=== PATIENT | female | born 1980 | race Caucasian/White ===

== ENCOUNTER 2020-07-02 14:16 | Outpatient (CLI) | payer OTHER, SELFPAY ==
--- NOTE | ~2020-07-02 | MMUS_ITS ---
EXAMINATION: MM diagnostic gray BI w arturo, US breast LT limited HISTORY: Palpable lump in the upper outer quadrant of the left breast TECHNIQUE: Craniocaudal, mediolateral, and mediolateral oblique 3-D tomosynthesis images of the hipolito ts were performed and synthetic 2-D images were generated. CAD analysis was submitted and interpreted . High resolution limited left breast ultrasound was performed. COMPARISON: No prior mammogram is currently available for comparison. BREAST PARENCHYMAL COMPOSITION: The breasts are heterogeneously dense, which may obscure small masses . FINDINGS: MAMMOGRAPHIC FINDINGS: There are multiple small, obscured, low density bilateral breast masses. No specific mammographic cor relate is identified for the reported palpable abnormality of the left breast. There is no suspicious calcification or architectural distortion. ULTRASOUND: There is an 8 mm cyst of the left breast at the 12:00 location 4 cm from the nipple corresponding to the palpable abnormality of concern. IMPRESSION: 1. Left breast cyst corresponding to the palpable abnormality of concern. No mammographic or sonograp hic evidence of malignancy. 2. Recommend routine screening mammography in one year. BI-RADS Category 2: Benign finding(s). Reviewed, dictated and finalized at location A. ADVISOR IMPRESSION: 1. Left breast cyst corresponding to the palpable abnormality of concern. No ma mmographic or sonographic evidence of malignancy. 2. Recommend routine screening mammography in one year. BI-RADS Category 2: Benign finding(s).
== END 2020-07-02 14:17 | disposition home or self-care (01) ==
PROVIDERS: PCP Family Medicine; Visit Provider Student in an Organized Health Care Education/Training Program
DX: N63.0 Unspecified lump in unspecified breast (principal); N60.02 Solitary cyst of left breast
CPT/HCPCS: 76642; 77062; 77066; G0279

== ENCOUNTER → 2021-02-12 13:41 | Outpatient (CLI) | payer OTHER, SELFPAY ==
--- NOTE | ~2021-02-12 | MM_ITS ---
EXAMINATION: MM screening gray BI w arturo HISTORY: Screening mammogram TECHNIQUE: Craniocaudal and mediolateral oblique 3-D tomosynthesis images were obtained and synthetic 2-D images were generated. CAD analysis was submitted and interpreted. COMPARISON: 07/02/2017 bilateral diagnostic mammogram and limited left breast BREAST PARENCHYMAL COMPOSITION: The breasts are heterogeneously dense, which may obscure small masses . FINDINGS: Bilateral low-density circumscribed masses are noted. Bilateral diagnostic mammography and breast ultrasound examination are recommended. IMPRESSION: 1. Bilateral breast masses 2. Bilateral diagnostic mammography and breast ultrasound examination are recommended BI-RADS Category 0: Incomplete: Needs additional imaging evaluation. Reviewed, dictated and finalized at location A. IMPRESSION: 1. Bilateral breast masses 2. Bilateral diagnostic mammography and breast ultrasound examination are recom mended BI-RADS Category 0: Incomplete: Needs additional imaging evaluation.
== END ==
PROVIDERS: Visit Provider Obstetrics & Gynecology
DX: Z12.31 Encounter for screening mammogram for malignant neoplasm of breast (principal); R92.8 Other abnormal and inconclusive findings on diagnostic imaging of breast
CPT/HCPCS: 77063; 77067

== ENCOUNTER → 2021-03-17 09:49 | Outpatient (CLI) | payer OTHER, SELFPAY ==
--- NOTE | ~2021-03-17 | MMUS_ITS ---
EXAMINATION: MM diagnostic gray BI w arturo, US breast BI complete HISTORY: Follow-up bilateral breast masses TECHNIQUE: Additional 3-D tomosynthesis images of the breasts were performed and synthetic 2-D images were generated. CAD analysis was submitted and interpreted. High resolution bilateral complete breas t ultrasound was performed. COMPARISON: Comparison to multiple prior studies sequentially, with oldest reviewed study dated 06/16. BREAST PARENCHYMAL COMPOSITION: The breasts are heterogenously dense, which may obscure small masses. FINDINGS: MAMMOGRAPHIC FINDINGS: There are scattered nodular densities in both breasts which are obscured by dense fibroglandular tiss ue. There are no suspicious calcifications or architectural distortion. ULTRASOUND: Right breast ultrasound: There are multiple simple and complicated cysts of the right breast. At 12:0 0, 3 cm from the nipple there is a 7 mm intramammary lymph node. At 11:00, 7 cm from the nipple there is an oval hypoechoic mass measuring 5 mm. At 11:00, 8 cm from the nipple there is an 8 mm oval hypo echoic mass with posterior acoustic enhancement. No internal vascularity. There are heterogeneous int ernal echoes. Left breast ultrasound: Multiple simple and complicated cysts of the left breast. No suspicious cecelia s in the left breast to suggest malignancy. IMPRESSION: 1. Probable benign masses of the right breast by ultrasound. 2. Recommend 6 month follow-up right breast ultrasound BI-RADS category 3, probably benign findings. Reviewed, dictated and finalized at location A. IMPRESSION: 1. Probable benign masses of the right breast by ultrasound. 2. Recommend 6 month follow-up right breast ultrasound BI-RADS category 3, probably benign findings.
== END ==
PROVIDERS: Visit Provider Obstetrics & Gynecology
DX: N63.15 Unspecified lump in the right breast, overlapping quadrants (principal); N63.11 Unspecified lump in the right breast, upper outer quadrant
CPT/HCPCS: 76641; 77062; 77066; G0279

== ENCOUNTER → 2021-09-30 08:40 | Outpatient (CLI) | payer OTHER, SELFPAY ==
--- NOTE | ~2021-09-30 | US_ITS ---
EXAMINATION: US breast RT limited HISTORY: Six-month follow-up for probably benign right breast masses TECHNIQUE: Limited right breast ultrasound is performed. COMPARISON: 03/17/2021 FINDINGS: There is a stable 7 mm x 6 mm oval, circumscribed, parallel, hypoechoic mass with no lead assembler ior features or internal vascularity at the 11:00 location 8 cm from the nipple. A 9 mm x 5 mm mass w ith similar sonographic features, also at the 11:00 location 8 cm from the nipple demonstrates slight increase in size. There is a stable 5 mm x 4 mm mass with similar sonographic features at the 11:00 location 7 cm from the nipple. IMPRESSION: Probably benign right breast masses. Recommend follow-up right breast ultrasound in six months. BI-RADS category 3, probably benign findings. Reviewed, dictated and finalized at location A. IMPRESSION: Probably benign right breast masses. Recommend follow-up right breast ultrasoun d in six months. BI-RADS category 3, probably benign findings.
== END ==
PROVIDERS: Visit Provider Obstetrics & Gynecology
DX: R92.8 Other abnormal and inconclusive findings on diagnostic imaging of breast (principal)
CPT/HCPCS: 76642

== ENCOUNTER → 2022-03-09 07:55 | Outpatient (CLI) | payer OTHER, SELFPAY ==
--- NOTE | ~2022-03-09 | MMUS_ITS ---
EXAMINATION: MM diagnostic gray BI w arturo, US breast RT limited HISTORY: Follow-up right breast masses TECHNIQUE: Additional 3-D tomosynthesis images of the breasts were performed and synthetic 2-D images were generated. CAD analysis was submitted and interpreted. High resolution Limited right breast ult rasound was performed. COMPARISON: Comparison to multiple prior studies sequentially, with oldest reviewed study dated 06/16. BREAST PARENCHYMAL COMPOSITION: The breasts are extremely dense, which lowers the sensitivity of mamm ography FINDINGS: MAMMOGRAPHIC FINDINGS: There are no suspicious masses, calcifications or architectural distortion in either breast to sugges t malignancy. ULTRASOUND: Limited right breast ultrasound: At 11:00, 8 cm from the nipple there is a stable oval circumscribed hypoechoic mass with parallel orientation, no significant posterior features measuring 8 x 8 x 5 mm, stable compared with prior studies. At 11:00, 8 cm from the nipple there is an oval circumscribed hyp oechoic mass with parallel orientation measuring 5 x 3 x 5 mm, stable compared with 09/30/2021. At 11: 00, 7 cm from the nipple there is an 8 mm cyst. IMPRESSION: 1. Stable right breast masses, likely benign. 2. Recommend 6 month follow-up Limited right breast ultrasound BI-RADS category 3, probably benign findings. Reviewed, dictated and finalized at location A. IMPRESSION: 1. Stable right breast masses, likely benign. 2. Recommend 6 month follow-up Limited right breast ultrasound BI-RADS category 3, probably benign findings.
== END ==
PROVIDERS: PCP Obstetrics & Gynecology; Visit Provider Obstetrics & Gynecology
DX: R92.8 Other abnormal and inconclusive findings on diagnostic imaging of breast (principal)
CPT/HCPCS: 76642; 77062; 77066; G0279

== ENCOUNTER → 2022-10-06 08:29 | Outpatient (CLI) | payer OTHER, SELFPAY ==
--- NOTE | ~2022-10-06 | US_ITS ---
US breast RT limited 10/06/2022 09:06 Indication: Follow-up right breast masses Procedure: High-resolution Limited ultrasound of the right breast Comparison: Comparison to multiple prior studies sequentially, with oldest reviewed study dated 07/2020. Findings: There are stable oval circumscribed hypoechoic masses of the right breast located at 11:00, 8 cm from the nipple. The first mass measures 7 x 8 x 5 mm, unchanged. There is parallel orientation , circumscribed margins, no significant posterior features and no internal vascularity. The second ma ss measures 8 x 4 x 7 mm with similar characteristics, unchanged. Impression: 1: Stable benign-appearing right breast masses at 11:00, 7 cm from the nipple. BI-RADS CATEGORY 3-PROBABLY BENIGN FINDING RECOMMENDATION: Six-month follow-up diagnostic bilateral mammogram and right breast ultrasound recomm ended. Reviewed, dictated and finalized at location A. Impression: 1: Stable benign-appearing right breast masses at 11:00, 7 cm from the nipple. BI-RADS CATEGORY 3-PROBABLY BENIGN FINDING RECOMMENDATION: Six-month follow-up diagnostic bilateral mammogram and right br east ultrasound recommended.
== END ==
PROVIDERS: PCP Physician Assistant; Visit Provider Obstetrics & Gynecology
DX: N63.11 Unspecified lump in the right breast, upper outer quadrant (principal)
CPT/HCPCS: 76642

== ENCOUNTER → 2023-03-23 07:42 | Outpatient (CLI) | payer OTHER, SELFPAY ==
--- NOTE | ~2023-03-23 | MMUS_ITS ---
EXAMINATION: MM diagnostic gray BI w arturo, US breast RT limited HISTORY: Six-month follow-up of right likely benign stable breast masses. Screening. TECHNIQUE: ML, MLO and CC 3-D tomosynthesis images of both breasts were performed and synthetic 2-D i mages were generated. CAD analysis was submitted and interpreted. High resolution targeted 11:00 righ t breast ultrasound was performed. COMPARISON: 10/06/2022 Limited right breast ultrasound 03/05/2022 diagnostic bilateral mammogram and limited right breast ultrasound 09/30/2021 Limited right breast ultrasound 03/17/2021 bilateral diagnostic mammography and bilateral complete breast ultrasound BREAST PARENCHYMAL COMPOSITION: The breasts are heterogeneously dense, which may obscure small masses . FINDINGS: MAMMOGRAPHIC FINDINGS: No suspicious mass or architectural distortion, malignant calcification, skin thickening or retractio n or significant new or developing density is detected. ULTRASOUND: No suspicious mass or shadowing is detected. The following 3 lesions appear similar, with circumscribed margins, no internal vascularity or posterior shadowing, suggesting benign process. 2 of these have diminished in size since 10/06/2022, further supporting benign diagnosis. 11:00 7 cm from nipple: 5.2 x 5.4 x 4.1 mm circumscribed hypoechoic lesion without internal vasculari ty or posterior shadowing 11:00 8 cm from nipple: 6.1 x 7.5 x 7.1 mm circumscribed hypoechoic lesion with without internal vasc ularity or posterior shadowing 11:00 8 cm from nipple: Parallel circumscribed 4.7 x 9.3 x 7.4 mm hypoechoic lesion without internal vascularity or posterior shadowing. IMPRESSION: 1. Benign findings; no mammographic or sonographic evidence of malignancy 2. Routine annual mammographic screening is recommended BI-RADS Category 2: Benign finding(s). Reviewed, dictated and finalized at location A. IMPRESSION: 1. Benign findings; no mammographic or sonographic evidence of malignancy 2. Routine annual mammographic screening is recommended BI-RADS Category 2: Benign finding(s).
== END ==
PROVIDERS: PCP Obstetrics & Gynecology; Visit Provider Obstetrics & Gynecology
DX: R92.8 Other abnormal and inconclusive findings on diagnostic imaging of breast (principal)
CPT/HCPCS: 76642; 77062; 77066; G0279

== ENCOUNTER 2023-12-12 09:13 | Outpatient (CLI) | payer OTHER, SELFPAY ==
--- NOTE | ~2023-12-12 | US_ITS ---
EXAMINATION: US pelvic complete w TV DATE: 12/12/2023 10:00 INDICATION: Left lower quadrant pain. History of fibroids. Comparison:Pelvic pain TECHNIQUE: Multiple transabdominal and endovaginal sonographic images of the pelvis performed. FINDINGS: The uterus measures 6.7 x 3.6 x 4.8 cm. There is a hyperechoic focus in the endometrium herb suring 6 x 4 x 3 mm, likely calcification. The endometrial complex measures 3 mm. The right ovary measures 3.9 x 2.1 x 2.5 cm and the left ovary measures 2.9 x 2.2 x 2 cm. There are small follicles in each ovary. Normal doppler signal in both ovaries. There is free fluid in the pelvis. There are no abnormal masses seen on either side. IMPRESSION: 1. Endometrial echogenic focus measuring 6 mm, possibly calcification. Reviewed, dictated and finalized at location B.
== END 2023-12-12 09:14 ==
LOC: GOSHIMG 09:14
PROVIDERS: PCP Obstetrics & Gynecology; Visit Provider Physician Assistant
DX: D25.9 Leiomyoma of uterus, unspecified (principal)
CPT/HCPCS: 76830; 76856

== ENCOUNTER 2024-01-22 11:33 | Emergency (ER) | payer OTHER, SELFPAY ==
--- NOTE | ~2024-01-22 | XR_ITS ---
Right foot Technique: AP, oblique, and lateral views were obtained. Clinical History: Injury Findings: There is an acute fracture of the distal fibula, obliquely oriented. No other fracture or d islocation seen in the foot itself.. Joint spaces are preserved without erosive or degenerative bernardo e. Soft tissues are unremarkable. Impression: No fracture or dislocation in the foot itself. Acute oblique fracture the distal fibula. Please refer to separately reported ankle radiographic seri es for further details. Reviewed, dictated and finalized at location M. Impression: No fracture or dislocation in the foot itself. Acute oblique fracture the distal fibula. Please refer to separately reported a nkle radiographic series for further details.
--- NOTE | ~2024-01-22 | XR_ITS ---
Right ankle Technique: AP, oblique, and lateral views were obtained. Clinical History: Injury Findings: There is an acute, oblique fracture of the distal fibula, at and just proximal to the level ankle mortise, mildly displaced. No other fracture or dislocation seen.. Ankle mortise and other vis ualized joint spaces are preserved. Soft tissue swelling about the ankle noted. Impression: Acute fracture the distal fibula, as detailed above. Reviewed, dictated and finalized at location M. Impression: Acute fracture the distal fibula, as detailed above.
--- NOTE | 2024-01-22 11:39 | ED.LOWEXIN ---
HPI - Extremity Injury (Lower) General Chief Complaint: Extremity Injury, Lower <Candi Yen APRN - Last Filed: 01/23/24 11:16> Stated Complaint: Right Foot Injury <Candi Yen APRN - Last Filed: 01/23/24 11:16> Time Seen by Provider: 01/22/24 11:42 <Candi Yen APRN - Last Filed: 01/23/24 11:16> Source: patient, RN notes reviewed and old records reviewed <Candi Yen APRN - Last Filed: 01/23/24 11:16> Mode of arrival: ambulatory <Candi Yen APRN - Last Filed: 01/23/24 11:16> Limitations: no limitations <Candi Yen APRN - Last Filed: 01/23/24 11:16> History of Present Illness HPI Narrative: 44-year-old female presents to the [facility] with complaints of right lateral foot pain. Patient states that she ?jammed? her foot on Monday on a water slide. Has been icing it and elevating it. Swelling noted. Positive pedal pulse. Sensation intact. Bruising noted to the lateral malleolus as well as calcaneal area. Tender to the base of the 5th metatarsal, lateral malleolus. <Candi Yen APRN - Last Filed: 01/23/24 11:16> Onset (ago): day(s) (3) <Candi Yen APRN - Last Filed: 01/23/24 11:16> Injury: Right: ankle and foot <Candi Yen APRN - Last Filed: 01/23/24 11:16> Related Data Home Medications: Home Medications Medication Instructions Recorded Confirmed bupropion HCl 300 mg 24 hr tablet, mg PO 01/22/24 extended release <Candi Yen APRN - Last Filed: 01/23/24 11:16> Allergies/Adverse Reactions: Allergies Allergy/AdvReac Type Severity Reaction Status Date / Time No Known Allergies Allergy Unknown Verified 05/09/10 11:41 <Candi Yen APRN - Last Filed: 01/23/24 11:16> Review of Systems Review of Systems: All systems reviewed & are unremarkable except as noted in HPI and below <Candi Yen APRN - Last Filed: 01/23/24 11:16> Constitutional: Constitutional: Reports no additional constitutional complaints <Candi Yen APRN - Last Filed: 01/23/24 11:16> Eyes: Eyes: Reports no additional eye complaints <Candi Yen [employer] DEVELOPER - Last Filed: 01/23/24 11:16> ENT: Reports system reviewed and no additional complaints, except as documented <Candi Yen, [employer] DEVELOPER - Last Filed: 01/23/24 11:16> Cardiovascular: Cardiovascular: Reports no additional cardiovascular complaints, Denies chest pain and Denies dyspnea <Candi Yen [employer] DEVELOPER - Last Filed: 01/23/24 11:16> Respiratory: Respiratory: Reports no additional respiratory complaints, Denies chest congestion, Denies cough and Denies dyspnea <Candi Yen APRN - Last Filed: 01/23/24 11:16> Gastrointestinal: Gastrointestinal: Reports no additional gastrointestinal complaints, Denies abdominal pain, Denies nausea and Denies vomiting <Candi Yen, [employer] DEVELOPER - Last Filed: 01/23/24 11:16> Musculoskeletal: Musculoskeletal: Reports as per HPI, Reports arthralgias and Reports joint swelling <Candi Yen [employer] DEVELOPER - Last Filed: 01/23/24 11:16> Integumentary/Breasts: Skin/Breast: Reports system reviewed and no additional complaints, except as docu <Candi Yen [employer] DEVELOPER - Last Filed: 01/23/24 11:16> Neurologic: Reports system reviewed and no additional complaints, except as documented <Candi Yen, [employer] DEVELOPER - Last Filed: 01/23/24 11:16> Psychiatric: Psychiatric: Reports no additional psychiatric complaints <Candi Yen APRN - Last Filed: 01/23/24 11:16> Allergic/Immunologic: Allergic/Immunologic: Reports no additional allergic/immunologic complaints <Candi Yen APRN - Last Filed: 01/23/24 11:16> [facility] Family History Family History: Family History Mother Hypertension Family history of cardiovascular disease Family history of cardiac disorder <Candi Yen, NARAYAN - Last Filed: 01/23/24 11:16> Social History Social History: Social History (Reviewed 01/22/24 @ 11:50 by Josué
[2024-01-22 11:44] VITALS: BP 128/86; PULSE 78; RESP 16; TEMP 36.6; O2SAT 98
== END 2024-01-22 14:00 | disposition home or self-care (01) ==
PROVIDERS: Emergency Provider Nurse Practitioner Family; PCP Physician Assistant
DX: S82.61XA Displaced fracture of lateral malleolus of right fibula, initial encounter for closed fracture (principal); W22.09XA Striking against other stationary object, initial encounter
CPT/HCPCS: 29515; 73610; 73630; 99214; G0463

== ENCOUNTER 2024-03-28 09:54 | Outpatient (CLI) | payer OTHER, SELFPAY ==
--- NOTE | ~2024-03-28 | MM_ITS ---
EXAMINATION: MM screening gray BI w arturo HISTORY: Screening mammogram TECHNIQUE: Craniocaudal and mediolateral oblique 3-D tomosynthesis images were obtained and synthetic 2-D images were generated. CAD analysis was submitted and interpreted. COMPARISON: 03/23/2023, 03/09/2022, 02/12/2021, 07/02/2020 BREAST PARENCHYMAL COMPOSITION:Dense: The breasts are heterogeneously dense, which may obscure small masses. FINDINGS: No suspicious mass, calcification, or architectural distortion are identified in either rupinder ast to suggest malignancy. There has been no suspicious interval change. IMPRESSION: No mammographic evidence of malignancy. Recommend routine screening mammography in one year. BI-RADS Category 1: Negative Reviewed, dictated and finalized at location .
== END 2024-03-28 09:55 | disposition home or self-care (01) ==
LOC: MICIMG 09:56
PROVIDERS: PCP Obstetrics & Gynecology; Visit Provider Obstetrics & Gynecology
DX: Z12.31 Encounter for screening mammogram for malignant neoplasm of breast (principal)
CPT/HCPCS: 77063; 77067

== ENCOUNTER 2024-12-19 01:36 | Day surgery (SDC) | payer OTHER, SELFPAY ==
[2024-12-10 13:27] VITALS: BMI 23.4
--- OUTSIDE RECORDS SUMMARY | 2024-12-19 01:40 | XMS_ITS | Data Portability ---
Author Organization [facility] PATRICIABreanne Address [address] [facility] [place] [address] Care Team Providers Care Fire Sprinkler Service Technician Name Role Phone ASAFBECK THOMAS Primary Care Provider Unavailab le Assessment No assessment recorded. Plan of Treatment Reminders Order Date Submit Date Provider Last Modified By Organization Details Last Modified Time Details Appointments None recorded. Lab TSH + free T4, serum 2024 025 [email or web address] [facility], [address] [place] [address], [address], 5 15:01:57 estradiol, serum 2024 025 [email or web address] [facility], [address] [place] [address], [address], 5 15:01:57 progestero ne, serum 2024 025 [email or web address] [facility], [address] [place] [address], [address], 5 15:01:57 lh + FSH, serum 2024 025 [email or web address] [facility], [address] [place] [address], [address], 5 15:01:57 testostero ne, free + total, serum 2024 025 [email or web address] [facility], [address], [place], [address], 5 15:01:57 lipid panel, serum 2024 025 [facility], [address], [place], [address], 5 15:01:57 CBC w/ auto diff 2024 025 [email or web address], [address], [place], [address], 5 15:01:57 CMP, serum or plasma 2024 025 [email or web address], [address], [place], [address], 5 15:01:58 vitamin B12 + folate, serum or blood 2024 025 [facility], [address], [place], [address], 5 15:01:58 HbA1c (hemoglobi n A1c), blood 2024 025 [facility], [address], [place], [address], 5 15:01:57 TSH + free T4, serum 2023 024 MOO [facility], [address] [place] [address], [facility], [place], [address], 4 09:53:49 insulin, serum 2023 024 [email or web address] [facility], [address] [facility], [facility], [place], [address], 4 11:46:47 estradiol, serum 2023 024 [email or web address] [facility], [address] [facility], [facility], [place], [address], 4 11:47:32 progestero ne, serum 2023 024 [email or web address] [facility], [address] [place] [address] 2, [place], [address], 4 11:47:01 lh + FSH, serum 2023 024 [facility], [address] [place] [address] 2, [place], [address], 4 11:47:16 testostero ne, total, serum 2023 024 [facility], [address] [place] [address] 2, [place], [address], 4 11:47:43 Referral None recorded. Procedures colonoscop y screening (PROC) [address] [facility], [address], [address], [place], [address], 5 15:03:53 Surgeries None recorded. Imaging US, pelvis, transabdom inal + transvagin al 2023 024 [facility], [address] [place] [address], [address], [place], [address], 4 15:31:50 Medication Orders triamcinol one acetonide 0.1 % topical cream 2024 025 [facility], [address] [facility], [place], [place], [id number], 5 15:02:28 bupropion HCl XL 300 mg 24 hr tablet, extended release 2023 024 [facility], [address] [facility], [place], [address], 4 14:32:52 alprazolam 0.5 mg tablet 2023 024 [email or web address] [facility]21452, [address] [place], [place], [id number], 5 14:34:23 triamcinol one acetonide 0.1 % topical cream 2023 024 MOO [facility] #[id number], [address] [place], [place], [id number], 4 12:03:10 Patient TargetsNo targets recorded. Patient Instructions Encounter Date Encounter Id Patient Instructions Last Modified By Organization Details Last Modified Time 08/12/2024 [id number] A healthy lifestyle: care instructions [email or web address] Not available 08/12/2024 14:55:04 Reason for Referral None Reported. Results Created Date Observation Date Name Description Value Unit Range Abnormal Flag Note LastModifiedBy Organization Detail LastModifiedTime 01/11/20 24 12/12/2023 US, pelvi s, trans abdom inal + trans vagin al No observ ation record ed. [email or web address] [facility] [address] [facility] [address], [place], [address], 01/12/2024 09:33:26 01/23/20 24 01/22/2024 XR, ankle No observ ation record ed. [email or web address] [facility] [address], [place], [address], 01/26/2024 10:20:00 Result Notes None recorded. Problems Name Problem SNOMED Code Status Onset Date Resolution Date Notes Provider Name and Address Organization Details Recorded Time Body mass index 25-29 - overweight 988877778 Active 2024 Celina Mathew MA null, MD - [facility] 5 14:35:10 Moderate recurrent major depression 57137476 Active 2024 FREIDA Matias Attn: Faraz g,[address] [facility], [place], [address], [facility] 10:56:05 Overweight 482611784 Active 2024 FREIDA Matias Attn: Faraz marshall,[address] [facility], [place], [address], [facility] 5 10:56:21 Perimenopausal disorder 035131749 Active 2024 FREIDA Matias Attn: Faraz marshall,[address] [facility], [place], [address], [facility] 5 10:56:27 Long-term drug therapy Active 2024 FREIDA Matias Attn: Faraz marshall,[address] [facility], [place], [address], [facility] 10:56:39 Problem Notes None recorded. Procedures Surgical History Date Name Laterality Status Provider Name and Address Organization Details Recorded Time Breast Surgery completed Celina Mathew MA [facility] 10/25/2023 11:24:07 Imaging Results None recorded. Procedure Notes None recorded. Medical Equipment None Reported. Allergies No known drug allergies Medications Name Sig Start Date Stop Date Status Note LastModified by Organization Details LastModified Time triamcinolo ne acetonide 0.1 % topical cream APPLY A THIN LAYER TO THE ARM TOPICALY TWICE DAILY NEEDED active Not Available Not Available No t Available terbinafine HCl 250 mg tablet Take 1 tablet every day by oral route for 28 days. active Not Available Not Available No t Available alprazolam 0.5 mg tablet Take 1 tablet as needed by oral route for 30 days. active Not Available Not Available No t Available bupropion HCl XL 300 mg 24 hr tablet, extended release TAKE 1 TABLET DAILY (CHANGE IN DOSE) 2024 active Not Available Not Available Not Avai lable bupropion HCl XL 150 mg 24 hr tablet, extended release 10/24 completed Not Available Not Available Not Available Vraylar 1.5 mg capsule 10/24 completed Not Available Not Available Not Available Vitals Date Recorded Respiratory rate Systolic blood pressure Diastolic blood pressure Provider Name and Address Organization Details Last Updated DateTime 08/12/2024 16 /min 110 mm[Hg] 80 mm[Hg] FREIDA Matias Attn: Accounting, [address] [facility], [place], [address], [facility] 08/12/2024 14:54:17 Date Recorded Body height Body mass index (BMI) Body weight Oxygen saturation Oxygen saturation in Arterial blood by Pulse oximetry Heart rate Systolic blood pressure Diastolic blood pressure Provider Name and Address Organization Details Last Updated DateTime 160.66 cm 25 kg/m2 28426.1 2 g 100 % 100 % 77 /min 122 mm[Hg] 82 mm[Hg] Celina Mathew MA [facility] 5 14:36:35 Date Recorded Body height Body mass index (BMI) Body weight Respiratory rate Heart rate Oxygen saturation Oxygen saturation in Arterial blood by Pulse oximetry Systolic blood pressure Diastolic blood pressure Provider Name and Address Organization Details Last Updated DateTime 4 160.66 cm 25.8 kg/m2 15258.0 8 g 20 /min 80 /min 99 % 99 % 122 mm[Hg] 82 mm[Hg] Celina Mathew MA [facility] 4 11:37:41 Social History Question Answer Notes LastModified by Organizat ion Details LastModified Time Tobacco Smoking Status Never Smoker Celina Mathew MA null, [facility] 10/25/2023 11:35:12 Do You Have An Advance Directive? No Information n ot available 10/25/2023 Are You Blind Or Do You Have Difficulty Seeing? No Information n ot available 10/25/2023 What Is Your Level Of Caffeine Consumption? None Information not available 10/25/2023 In The 14 Days Before Symptom Onset, Have You Had Close Contact With A Laboratory-confirm ed COVID-19 While That Case Was Ill? No Information n ot available 10/25/2023 In The 14 Days Before Symptom Onset, Have You Had Close Contact With A Person Who Is Under Investigation For COVID-19 While That Person Was Ill? No Information not available 10/25/2023 Have You Been To An Area Known To Be High Risk For COVID-19? No Information not available 10/25/2023 Are You Deaf Or Do You Have Serious Difficulty Hearing? No Information not available 10/25/2023 What Type Of Diet Are You Following? REGULAR Information n ot available 10/25/2023 Are There Any Guns Present In Your Home? No Information not available 10/25/2023 What Was The Date Of Your Most Recent Tobacco Screening? 08/12/2024 Information not available 08/12/2024 Do You Use Your Seat Belt Or Car Seat Routinely? Yes Information not available 10/25/2023 Do You Have Smoke And Carbon Monoxide Detectors In Your Home? Yes Information not available 10/25/2023 Do You Use Sunscreen Routinely? Yes Information not available 10/25/2023 Has Tobacco Cessation Counseling Been Provided? No Information not available 10/25/2023 Sex: Female Functional Status Question Answer Note LastModified by Organizat ion Details LastModified Time Do you use any illicit or recreational drugs? No Information not available 08/12/2024 Do you or have you ever used any other forms of tobacco or nicotine? No Information not available 10/25/2023 What is your level of alcohol consumption? None Information not available 10/25/2023 Are you able to care for yourself? Yes Information n ot available 10/25/2023 What is your exercise level? Moderate Information not available 10/25/2023 Mental Status None recorded. Family History Relationship Description Onset Age of this Age Resolved Age Notes LastModified by Organization Details LastModified Time Mother Hypertensive disorder [email or web address] Not available 2023 11:24:16 Medical History Condition Response Anxiety Disorder Y Gynecological History Statement/Question Response Menses Monthly N Current Control Method Other Obstetrics History GPAL:G 1 P 1 0 0 1 Type Value Full Term 1 Induced 0 Spontaneous 0 Premature 0 Living 1 Total 1 Past Encounters Encounter ID Performer Location Encounter Start Date Encounter Closed Date Diagnosis/Indication Diagnosis SNOMED-CT Code Diagnosis ICD10 Code Diagnosis Note [id number] He Neal MD [facility] [address] [place] [address] 10/25/2023 11:09:25 10/25/2023 13:06:12 Perimenopausal disorder 282031007 N95.9 check [facility] lab panel Weight gain 7571784 R63. 5 15 pounds gain in one year. check TFT panel and fasting insulin. Moderate r ecurrent major depression 49433977 F33.1 Boost to bupropion XL 300mg dose (from 150mg) daily. This will target the increased depression sym symptoms that are present and avoid any weight gain as side effect. Dyssomnia 63805006 G47.9 refill on PRN use of alprazolam 0.5mg bid Uterine leiomyoma 152138 05 D25.9 Pt reports a hx of uterine fibroid that hasn't been evaluated in a few years. she does have some wax and wane left lower extremity edema that is not present today on exam. We will check adnexa with ultrasound to r/o any large space occupying structure that could be causing LLE swelling at times. Eczema 12053073 L30.9 rx for triamcinol one cream 0.1% bid PRN Adult heal th examination 414250076 Z00.01 annual exam completed. [id number] He Neal MD [facility] [place] [address] [place] [address] 08/12/2024 14:28:40 08/12/2024 15:23:40 Moderate recurrent major depression 21582800 F33.1 Patient is currently stable on bupropion XL 300mg dose. No acute concerns Dyssomnia 87082399 G47.9 Stable on prn use of alprazolam 0.5mg bid Body mass index 25-29 - overweight 578671228 Z68.25 BMI is 25 Overweight 824416508 E66 .3 Patient has done well with her weight loss and her BMI is just at 25 there are no acute concerns with her being overweight Perimenopa usal disorder 847204969 N95.9 check [facility] lab panel per patient request Cholesterol screening 27 4268387 Z13.220 Fasting lipid panel is due Diabetes m ellitus screening 436581722 Z13.1 Diabetes screening is due Adult heal th examination 120792074 Z00.01 annual exam completed. 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 [employer] Concerns Section Related Observation LastModified by Organization Detai ls LastModified Time None Recorded Concern Status LastModified by Organization Details LastModified Time None Recorded Advance Directives Directive N: Payers Encounter Date Sequence Insurance Name Policy Number Policy Maya Covered Member ID Maya Member ID Guarantor Name 10/25/2023 1 [facility] [id number] Becca Jeremiahaneudy [id number] Becca Marinelli 08/12/2024 1 [facility] [id number] [place] Brosteresaimoji [id number] Becca Jeremiahaneudy Notes Date Note Type Note Provider Name and Address Organization Details Recorded Time 10/25/2023 text/html Anxiety/Depressi onRe ported bypatient.Quality:sy mptoms worse in the evening;symptoms worse during the day Severity:denies suicidal ideations; able to maintain relationships; does not interfere with activities of daily living Duration:frequent Context:no major life stressors Modifying Factors:medications as directed Associated Symptoms:denies homicidal ideations; no significant weight gain; no significant weight loss; no visual/auditory hallucinations; no delusions; no shortness of breath; mood good; no anxiety; no crying spells; no panic; no isolation; sleeping well; appetite good; energy good; no apathy; maintaining functionality;depres raisa PT is also feeling hormonal mood changes with perimenopausal state. She also has hx of uterine fibroid present a few years ago. She sees a brake coupler dinkey. she has had some weight gain and sleep disturbance at night. FREIDA Matias Attn: Accounting,[address] [place], [address], [facility] 10/25/2023 14:38:01 08/12/2024 text/html Anxiety/Depressi onRe ported bypatient.Quality:sy mptoms worse in the evening;symptoms worse during the day Severity:denies suicidal ideations; able to maintain relationships; does not interfere with activities of daily living Duration:frequent Context:no major life stressors Modifying Factors:medications as directed Associated Symptoms:denies homicidal ideations; no significant weight gain; no significant weight loss; no visual/auditory hallucinations; no delusions; no shortness of breath; mood good; no anxiety; no crying spells; no panic; no isolation; sleeping well; appetite good; energy good; no apathy; maintaining functionality;depres raisa PT is also feeling hormonal mood changes with perimenopausal state. She also has hx of uterine fibroid present a few years ago. She sees a brake coupler dinkey. she has had some weight gain and sleep disturbance at night. FREIDA Matias Attn: Accounting,[address] [place], [address], [facility] 08/19/2024 10:57:26 OBGyn Episode No OBEpisode recorded.
--- OUTSIDE RECORDS SUMMARY | 2024-12-19 01:40 | XMS_ITS | Clinical Summary ---
Author Organization [facility] Address [facility] [place] [address] Care Team Providers Care Equine Breeder Name Role Phone Unavailable Primary Care Provider Unavailabl e Source Comments [facility],non-owned Affiliates and Associated Physician Practices is amultiple site organization consisting of ambulatory clinics and hospital sitesin [place], [place], [place] and [place]. This disclosure is being madepursuant to the Care Everywhere program and may not contain all information available regarding this patient. Last updated 18.[facility] Allergies No known active allergies Medications * Be aware that medications may not be up to date on this document. Alwaysverify current medications with the patient. buPROPion XL 24hr (WELLBUTRIN XL) 300 MG tablet Take 300 mg by mouth every morning Active benzonatate (TESSALON) 100 MG capsuleIndicati ons:Cough Take 1 capsule by mouth 3 times daily as needed for Cough Reasons: Cough 30 capsule 8 Active Additional Information Patient not taking.Reported on 05/15/2021 fluticasone propionate (FLONASE) 50 MCG/ACT nasal sprayIndication s:Allergic Rhinitis Beverly 2 sprays into each nostril once daily Reasons: Allergic Rhinitis 1 bottles 8 Active Additional Information Patient not taking.Reported on 05/15/2021 phenazopyridine (PYRIDIUM) 200 MG tablet Take 1 (one) tablet by mouth 3 times daily as needed 12 tablet Active Active Problems No known active problems Social History Tobacco Use Types Packs/Day Years Used Date Smoking Tobacco: Never Smokeless Tobacco: Never PHQ-2 Answer Date Recorded PHQ2 TOTAL SCORE 0 05/15/2021 Comments No Sex and Gender Information Value Date Recorded Sex Assigned at Not on file Legal Sex Female 8:48 AM APPEALS ASSISTANT Gender Identity Not on file Sexual Orientation Not on file Last Filed Vital Signs Vital Sign Reading Time Taken Comments Blood Pressure 112/82 08/09/2017 4:42 PM APPEALS ASSISTANT Pulse 87 08/09/2017 4:42 PM APPEALS ASSISTANT Temperature 37.1 C (98.8 F) 08/09/2017 4:42 PM APPEALS ASSISTANT Respiratory Rate 16 08/09/2017 4:42 PM APPEALS ASSISTANT Oxygen Saturation 99% 08/09/2017 4:42 PM APPEALS ASSISTANT Inhaled Oxygen Concentration - - Weight 60.3 kg (133 lb) 08/09/2017 4:42 PM APPEALS ASSISTANT Height 160 cm (5' 3) 08/09/2017 4:42 PM APPEALS ASSISTANT Body Mass Index 23.56 08/09/2017 4:42 PM APPEALS ASSISTANT Plan of Treatment Health Maintenance Due Date Last Done Comments LIPID TESTING 1980 MAMMOGRAM 1980 HIV SCREENING 01/19/1995 HEPATITIS C SCREENING 01/15/1998 DTAP/TDAP/TD VACCINES (1 - Tdap) 01/19/1999 HEPATITIS B VACCINE (1 of 3 - 19+ 3-dose series) 01/19/1999 COVID-19 VACCINE (1 - 2023-2 5 season) 2024 DEPRESSION SCREENING 07/17/2024 INFLUENZA VACCINE (Season Ended) 2025 ZOSTER VACCINE (1 of 2) 01/19/2030 HIB VACCINE Aged Out No longer eligi ble based on patient's age to complete this topic HPV VACCINE Aged Out No longer eligi ble based on patient's age to complete this topic MENINGOCOCCAL (Group B) VACC INE SHARED DECISION-MAKING Aged Out No longer eligibl e based on patient's age to complete this topic MENINGOCOCCAL GROUPS A/C/Y/W VACCINE Aged Out No longer eligible b ased on patient's age to complete this topic PNEUMOCOCCAL VACCINE Aged Out No long er eligible based on patient's age to complete this topic Insurance [employer]
--- OUTSIDE RECORDS SUMMARY | 2024-12-19 01:40 | XMS_ITS | Encounter Summary ---
Author Organization [facility] Address [address] [place] [address] Care Team Providers Care Asset Card Clerk Name Role Phone Unavailable Primary Care Provider Unavailabl e Prior Encounters Date Type Department Care Team Description 08/05/2019 Converted CPS Chart Documents [facility] [address] [place] [address] <No scans attached> 08/05/2019 Converted 13x Documents [facility] [address] [place] [address] <No scans attached> Plan of Treatment Not on file Procedures Procedure Name Priority Date/Time Associated Diagnosis Comments 9 BLCH SOLUTION 1 TUBE Routine 6 12:00 AM PDT 8 BLCH SOLUTION 1 TUBE Routine 6 12:00 AM PDT PROPHYLAXIS - ADULT Routine 05/18/2016 1 2:00 AM PDT PERIODIC ORAL EVALUATION - ESTABLISHED PATIENT Routine 05/18/2016 12:00 AM PDT BITEWINGS - FOUR RADIOGRAPHIC IMAGES Routine 05/18/2016 12:00 AM PDT ADDITIONAL X-RAY Routine 05/18/2016 12:0 0 AM PDT ADDITIONAL X-RAY Routine 05/18/2016 12:0 0 AM PDT ADDITIONAL X-RAY Routine 05/18/2016 12:0 0 AM PDT ADDITIONAL X-RAY Routine 05/18/2016 12:0 0 AM PDT ADDITIONAL X-RAY Routine 05/18/2016 12:0 0 AM PDT SINGLE X-RAY Routine 05/18/2016 12:00 AM PDT FM BLEACH IN-OFFICE Routine 11/05/2015 1 2:00 AM PDT PROPHYLAXIS - ADULT Routine 10/26/2015 1 2:00 AM PDT COMPREHENSIVE ORAL EVALUATION - NEW OR ESTABLISHED PATIENT Routine 10/26/2015 12:00 AM PDT INTRAORAL - COMPREHENSIVE SERIES OF RADIOGRAPHIC IMAGES Routine 10/26/2015 12:00 AM PDT INTRAORAL PHOTO Routine 10/26/2015 12:00 AM PDT INTRAORAL PHOTO Routine 10/26/2015 12:00 AM PDT INTRAORAL PHOTO Routine 10/26/2015 12:00 AM PDT INTRAORAL PHOTO Routine 10/26/2015 12:00 AM PDT Visit Diagnoses Not on file
--- OUTSIDE RECORDS SUMMARY | 2024-12-19 01:40 | XMS_ITS | Clinical Summary ---
Author Organization [facility] Address [address] [place] [address] Care Team Providers Care Patient Service Technician Pst Name Role Phone Unavailable Primary Care Provider Unavailabl e Social History Tobacco Use Types Packs/Day Years Used Date Smoking Tobacco: Never Assessed Comments Unknown Sex and Gender Information Value Date Recorded Sex Assigned at Not on file Legal Sex Female 1:02 AM PST Gender Identity Not on file Sexual Orientation Not on file Plan of Treatment Not on file
--- OUTSIDE RECORDS SUMMARY | 2024-12-19 01:41 | XMS_ITS | Data Portability ---
Author Organization [facility] [employer], Main Office Address [address] [place] [address] Assessment No assessment recorded. Plan of Treatment Reminders Order Date Submit Date Provider Last Modified By Organization Details Last Modified Time Details Appointments None recorded . Lab CBC w/ auto diff 023 04/24/20 23 [employer] [facility], [address], [place], [address], 3 04:08:16 CMP, serum or plasma 023 04/24/20 23 [employer] [facility], [address], [place], [address], 3 04:08:14 TSH + free T4, serum 023 04/24/20 23 [employer] [facility], [address], [place], [address], 3 04:08:11 lipid panel, serum 023 04/24/20 23 [employer] [facility], [address], [place], [address], 3 04:08:13 HbA1c (hemoglo bin A1c), blood 023 04/24/20 23 [employer] [facility], [address], [place], [address], 3 04:08:15 Referral None recorded . Procedures None recorded . Surgeries None recorded . Imaging None recorded . Medication Orders None recorded . Patient TargetsNo targets recorded. Patient InstructionsNo instructions recorded. Reason for Referral None Reported. Results Created Date Observation Date Name Description Value Unit Range Abnormal Flag Note LastModifiedBy Organization Detail LastModifiedTime 04/25/20 22 04/26/2022 VITAM IN B12/F OLATE , SERUM PANEL vitamin B12 892 pg/mL 200-11 00 normal Not Available [address], [address], 04/26/2022 07:28:09 04/25/2004/26/2022 VITAM IN B12/F OLATE , SERUM PANEL folate, serum 19.1 NG/mL normal Refer ence Range Low: <3.4 Borde rline : 3.4-5 .4 Lainey l: >5.4 Not Available [address], [address], 04/26/2022 07:28:09 04/25/2004/26/2022 REFLE XIVE URINE CULTU RE reflexive urine culture NO CULTU RE INDIC ATED Not Available [address], [address], 04/26/2022 07:28:09 04/25/2004/26/2022 URINA LYSIS , COMPL ETE W/REF ALEXI TO CULTU RE color yellow yellow normal Not Available [address], [address], 04/26/2022 07:28:08 04/25/2004/26/2022 URINA LYSIS , COMPL ETE W/REF ALEXI TO CULTU RE appearance clear clear normal Not Available [address], [address], 04/26/2022 07:28:08 04/25/2004/26/2022 URINA LYSIS , COMPL ETE W/REF ALEXI TO CULTU RE specific gravity 1.022 1.001- 1.035 normal Not Available [address], [address], 04/26/2022 07:28:08 04/25/2004/26/2022 URINA LYSIS , COMPL ETE W/REF ALEXI TO CULTU RE pH 7.0 5.0-8. 0 normal Not Available [address] [address] [place], [address], 04/26/2022 07:28:08 04/25/2004/26/2022 URINA LYSIS , COMPL ETE W/REF ALEXI TO CULTU RE glucose negati ve negati ve normal Not Available [address], [address], 04/26/2022 07:28:08 04/25/2004/26/2022 URINA LYSIS , COMPL ETE W/REF ALEXI TO CULTU RE bilirubin negati ve negati ve normal Not Available [address], [address], 04/26/2022 07:28:08 04/25/2004/26/2022 URINA LYSIS , COMPL ETE W/REF ALEXI TO CULTU RE ketones negati ve negati ve normal Not Available [address], [address], 04/26/2022 07:28:08 04/25/2004/26/2022 URINA LYSIS , COMPL ETE W/REF ALEXI TO CULTU RE occult blood negati ve negati ve normal Not Available [facility] [address] [place], [address], 04/26/2022 07:28:08 04/25/2004/26/2022 URINA LYSIS , COMPL ETE W/REF ALEXI TO CULTU RE protein negati ve negati ve normal Not Available [facility] [address] [address] [place], [address], 04/26/2022 07:28:08 04/25/202022 URINA LYSIS , COMPL ETE W/REF ALEXI TO CULTU RE nitrite negati ve negati ve normal Not Available [address], [address], 04/26/2022 07:28:08 04/25/20 22 04/26/2022 URINA LYSIS , COMPL ETE W/REF ALEXI TO CULTU RE leukocyte esterase negati ve negati ve normal Not Available [address], [address], 04/26/2022 07:28:08 04/25/2004/26/2022 URINA LYSIS , COMPL ETE W/REF ALEXI TO CULTU RE WBC none seen /hpf < or = 5 normal Not Available [address], [address], 04/26/2022 07:28:08 04/25/20 22 04/26/2022 URINA LYSIS , COMPL ETE W/REF ALEXI TO CULTU RE RBC none seen /hpf < or = 2 normal Not Available [address], [address], 04/26/2022 07:28:08 04/25/2004/26/2022 URINA LYSIS , COMPL ETE W/REF ALEXI TO CULTU RE squamous epithelial cells none seen /hpf < or = 5 normal Not Available [address], [address], 04/26/2022 07:28:08 04/25/20 22 04/26/2022 URINA LYSIS , COMPL ETE W/REF ALEXI TO CULTU RE bacteria none seen /hpf none seen normal Not Available [address], [address], 04/26/2022 07:28:08 04/25/2004/26/2022 URINA LYSIS , COMPL ETE W/REF ALEXI TO CULTU RE hyaline cast none seen /lpf none seen normal Not Available [address], [address], 04/26/2022 07:28:08 04/25/2004/26/2022 CBC (INCL UDES DIFF/ PLT) white blood cell count 6.0 thous and/u L 3.8-10 .8 normal Not Available [address], [address], 04/26/2022 07:28:08 04/25/2004/26/2022 CBC (INCL UDES DIFF/ PLT) red blood cell count 4.17 josie on/uL 3.80-5 .10 normal Not Available [address], [address], 04/26/2022 07:28:08 04/25/2004/26/2022 CBC (INCL UDES DIFF/ PLT) hemoglobin 12.6 g/dL 11.7-1 5.5 normal Not Available [address], [address], 04/26/2022 07:28:08 04/25/2004/26/2022 CBC (INCL UDES DIFF/ PLT) hematocrit 37.6 % 35.0-4 5.0 normal Not Available [address], [address], 04/26/2022 07:28:08 04/25/2004/26/2022 CBC (INCL UDES DIFF/ PLT) MCV 90.2 fL 80.0-1 00.0 normal Not Available [address], [address], 04/26/2022 07:28:08 04/25/2004/26/2022 CBC (INCL UDES DIFF/ PLT) MCH 30.2 pg 27.0-3 3.0 normal Not Available [address], [address], 04/26/2022 07:28:08 04/25/20 22 04/26/2022 CBC (INCL UDES DIFF/ PLT) MCHC 33.5 g/dL 32.0-3 6.0 normal Not Available [address], [address], 04/26/2022 07:28:08 04/25/2004/26/2022 CBC (INCL UDES DIFF/ PLT) RDW 11.7 % 11.0-1 5.0 normal Not Available [address], [address], 04/26/2022 07:28:08 04/25/2004/26/2022 CBC (INCL UDES DIFF/ PLT) platelet count 246 thous and/u L 140-40 0 normal Not Available [address], [address], 04/26/2022 07:28:08 04/25/20 22 04/26/2022 CBC (INCL UDES DIFF/ PLT) MPV 11.5 fL 7.5-12 .5 normal Not Available [address], [address], 04/26/2022 07:28:08 04/25/20 22 04/26/2022 CBC (INCL UDES DIFF/ PLT) absolute neutrophils 3828 cells /uL 1500-7 800 normal Not Available [address], [address], 04/26/2022 07:28:08 04/25/2004/26/2022 CBC (INCL UDES DIFF/ PLT) absolute lymphocytes 1698 cells /uL 850-39 00 normal Not Available [address], [address], 04/26/2022 07:28:08 04/25/20 22 04/26/2022 CBC (INCL UDES DIFF/ PLT) absolute monocytes 336 cells /uL 200-95 0 normal Not Available [address], [address], 04/26/2022 07:28:08 04/25/20 22 04/26/2022 CBC (INCL UDES DIFF/ PLT) absolute eosinophils 90 cells /uL 15-500 normal Not Available [address], [address], 04/26/2022 07:28:08 04/25/20 22 04/26/2022 CBC (INCL UDES DIFF/ PLT) absolute basophils 48 cells /uL 0-200 normal Not Available [address], [address], 04/26/2022 07:28:08 04/25/20 22 04/26/2022 CBC (INCL UDES DIFF/ PLT) neutrophils 63.8 % normal Not Available [address], [address], 04/26/2022 07:28:08 04/25/20 22 04/26/2022 CBC (INCL UDES DIFF/ PLT) lymphocytes 28.3 % normal Not Available [address], [address], 04/26/2022 07:28:08 04/25/2004/26/2022 CBC (INCL UDES DIFF/ PLT) monocytes 5.6 % normal Not Available [address], [address], 04/26/2022 07:28:08 04/25/2004/26/2022 CBC (INCL UDES DIFF/ PLT) eosinophils 1.5 % normal Not Available [address], [address], 04/26/2022 07:28:08 04/25/20 22 04/26/2022 CBC (INCL UDES DIFF/ PLT) basophils 0.8 % normal Not Available [facility] [address] [place], [address], 04/26/2022 07:28:08 04/25/2004/26/2022 T4, FREE T4, free 1.0 NG/dL 0.8-1. 8 normal Not Available [facility] [address] [place], [address], 04/26/2022 07:28:07 04/25/2004/26/2022 TSH TSH 0.74 mIU/L normal Refer ence Range > or = 20 Years 0.40- 4.50 Pregn kavitha Range s First trime ster 0.26- 2.66 Secon d trime ster 0.55- 2.73 Third trime ster 0.43- 2.91 Not Available [facility] [address] [place], [address], 04/26/2022 07:28:07 04/25/2004/26/2022 HEMOG LOBIN A1C hemoglobin A1C 4.9 %_of_ total _HGB <5.7 normal For the purpo se of celestina cantu for the prese nce of diabe camille: <5.7% Consi stent with the absen ce of diabe camille 5.7-6 .4% Consi stent with incre ased risk for diabe camille (pred iabet es) > or =6.5% Consi stent with diabe camille This assay resul t is consi stent with a decre ased risk of diabe camille. Curre ntly, no conse nsus exist s roel roche use of hemog lobin A1c for diagn osis of diabe camille in child ignacio. Accor ding to Ameri can Diabe camille Assoc iatio n (ADA) guide lines , hemog lobin A1c <7.0% repre sents optim al contr ol in non-p regna nt diabe tic patie nts. Diffe rent metri cs may apply to speci fic patie nt popul ation s. Stand ards of Medic al Care in Diabe camille(A DA). Not Available [address] [address] [place], [address], 04/26/2022 07:28:06 04/25/2004/26/2022 COMPR EHENS JURGEN METAB OLIC PANEL glucose 89 mg/dL 65-99 normal Fasti ng refer ence inter yin Not Available [address] [address] [place], [address], 04/26/2022 07:28:06 04/25/20 22 04/26/2022 COMPR EHENS JURGEN METAB OLIC PANEL urea nitrogen (BUN) 16 mg/dL 7-25 normal Not Available [address], [address], 04/26/2022 07:28:06 04/25/20 22 04/26/2022 COMPR EHENS JURGEN METAB OLIC PANEL creatinine 0.61 mg/dL 0.50-0 .99 normal Not Available [address] [address] [place], [address], 04/26/2022 07:28:06 04/25/20 22 04/26/2022 COMPR EHENS JURGEN METAB OLIC PANEL eGFR 114 mL/mi n/1.7 3m2 > or = 60 normal The eGFR is based on the CKD-E PI 2020 equat ion. To calcu late the new eGFR from a previ ous Creat inine or Cysta tin C resul t, go to https ://salvador agudelo.ratna dodson/fran weathers s/ kdoqi /gfr% 5Fcal culat or Not Available [address] [address] [place], [address], 04/26/2022 07:28:06 04/25/20 22 04/26/2022 COMPR EHENS JURGEN METAB OLIC PANEL BUN/creatini ne ratio not applic able (calc ) 6-22 Not Available [address] [address] [place], [address], 04/26/2022 07:28:06 04/25/20 22 04/26/2022 COMPR EHENS JURGEN METAB OLIC PANEL sodium 138 mmol/ L 135-14 6 normal Not Available [address], [address], 04/26/2022 07:28:06 04/25/20 22 04/26/2022 COMPR EHENS JURGEN METAB OLIC PANEL potassium 4.2 mmol/ L 3.5-5. 3 normal Not Available [address], [address], 04/26/2022 07:28:06 04/25/2004/26/2022 COMPR EHENS JURGEN METAB OLIC PANEL chloride 103 mmol/ L 98-110 normal Not Available [address], [address], 04/26/2022 07:28:06 04/25/20 22 04/26/2022 COMPR EHENS JURGEN METAB OLIC PANEL carbon dioxide 29 mmol/ L 20-32 normal Not Available [address], [address], 04/26/2022 07:28:06 04/25/20 22 04/26/2022 COMPR EHENS JURGEN METAB OLIC PANEL calcium 9.5 mg/dL 8.6-10 .2 normal Not Available [address], [address], 04/26/2022 07:28:06 04/25/20 22 04/26/2022 COMPR EHENS JURGEN METAB OLIC PANEL protein, total 7.2 g/dL 6.1-8. 1 normal Not Available [address], [address], 04/26/2022 07:28:06 04/25/20 22 04/26/2022 COMPR EHENS JURGEN METAB OLIC PANEL albumin 4.7 g/dL 3.6-5. 1 normal Not Available [address] [address] [place], [address], 04/26/2022 07:28:06 04/25/20 22 04/26/2022 COMPR EHENS JURGEN METAB OLIC PANEL globulin 2.5 g/dL_ (calc ) 1.9-3. 7 normal Not Available [address] [address] [place], [address], 04/26/2022 07:28:06 04/25/20 22 04/26/2022 COMPR EHENS JURGEN METAB OLIC PANEL albumin/glob ulin ratio 1.9 (calc ) 1.0-2. 5 normal Not Available [address], [address], 04/26/2022 07:28:06 04/25/20 22 04/26/2022 COMPR EHENS JURGEN METAB OLIC PANEL bilirubin, total 0.5 mg/dL 0.2-1. 2 normal Not Available [address] [address] [place], [address], 04/26/2022 07:28:06 04/25/20 22 04/26/2022 COMPR EHENS JURGEN METAB OLIC PANEL alkaline phosphatase 59 U/L 31-125 normal Not Available [address] [address] [place], [address], 04/26/2022 07:28:06 04/25/20 22 04/26/2022 COMPR EHENS JURGEN METAB OLIC PANEL AST 19 U/L 10-30 normal Not Available [address], [address], 04/26/2022 07:28:06 04/25/20 22 04/26/2022 COMPR EHENS JURGEN METAB OLIC PANEL ALT 28 U/L 6-29 normal Not Available [address] [address] [place], [address], 04/26/2022 07:28:06 04/25/20 22 04/26/2022 LIPID PANEL , STAND JEFFREY cholesterol, total 193 mg/dL <200 normal Not Available [address], [address], 04/26/2022 07:28:05 04/25/20 22 04/26/2022 LIPID PANEL , STAND JEFFREY HDL cholesterol 81 mg/dL > or = 50 normal Not Available [address], [address], 04/26/2022 07:28:05 04/25/20 22 04/26/2022 LIPID PANEL , STAND JEFFREY triglyceride s 82 mg/dL <150 normal Not Available [address], [address], 04/26/2022 07:28:05 04/25/2004/26/2022 LIPID PANEL , STAND JEFFREY LDL-choleste rol 95 mg/dL _(randall c) normal Refer ence range : <100 Mati able range <100 mg/dL for prima ry preve ntion ; <70 mg/dL for patie nts with CHD or diabe tic patie nts with > or = 2 CHD risk facto rs. LDL-C is now calcu lated using the Toshia n-Hop [facility] calcu romy n, which is a valid ated novel metho d whitneyi melchor henriquez r accur acy than the Fried sabino equat ion in the estim ation of LDL-C . Toshia moore SS et al. JERALD. 2013; 310(1 9): 2061- 2068 (http ://ed ucati on.Qu todDi [employer]. com/f aq/FA Q164) Not Available [address], [address], 04/26/2022 07:28:05 04/25/20 22 04/26/2022 LIPID PANEL , STAND JEFFREY chol/HDLC ratio 2.4 (calc ) <5.0 normal Not Available [address], [address], 04/26/2022 07:28:05 04/25/20 22 04/26/2022 LIPID PANEL , STAND JEFFREY non HDL cholesterol 112 mg/dL _(randall c) <130 normal For patie nts with diabe camille plus 1 major ASCVD risk facto r, treat ing to a non-H DL-C goal of <100 mg/dL (LDL- C of <70 mg/dL ) is consi danieled a mary hughes optio n. Not Available [facility] [address] [place], [address], 04/26/2022 07:28:05 04/26/2004/27/2023 TSH+F REE T4 TSH 1.15 mIU/L normal Refer ence Range > or = 20 Years 0.40- 4.50 Pregn kavitha Range s First trime ster 0.26- 2.66 Secon d trime ster 0.55- 2.73 Third trime ster 0.43- 2.91 Not Available [address] [address] [address], [place], [address], 04/27/2023 04:08:11 04/26/2004/27/2023 TSH+F REE T4 T4, free 0.9 NG/dL 0.8-1. 8 normal Not Available [facility] [address] [place], [address], 04/27/2023 04:08:11 04/26/20 23 04/27/2023 LIPID PANEL WITH RATIO S cholesterol, total 184 mg/dL <200 normal Not Available [facility] [address] [place], [address], 04/27/2023 04:08:13 04/26/20 23 04/27/2023 LIPID PANEL WITH RATIO S HDL cholesterol 61 mg/dL > or = 50 normal Not Available [facility] [address] [place], [address], 04/27/2023 04:08:13 04/26/2004/27/2023 LIPID PANEL WITH RATIO S triglyceride s 60 mg/dL <150 normal Not Available [address], [address], 04/27/2023 04:08:13 04/26/2004/27/2023 LIPID PANEL WITH RATIO S LDL-choleste rol 108 mg/dL _(randall c) high Refer ence range : <100 Mati able range <100 mg/dL for prima ry preve ntion ; <70 mg/dL for patie nts with CHD or diabe tic patie nts with > or = 2 CHD risk facto rs. LDL-C is now calcu lated using the Toshia n-Hop kins calcu romy n, which is a valid ated novel metho d provi ding florence r accur acy than the Fried sabnio equat ion in the estim ation of LDL-C . Toshia moore SS et al. JERALD. 2013; 310(1 9): 2061- 2068 (http ://ed ucati on.Qu todRingadoc. com/f aq/FA Q164) Not Available [address], [address], 04/27/2023 04:08:13 04/26/2004/27/2023 LIPID PANEL WITH RATIO S chol/HDLC ratio 3.0 (calc ) <5.0 normal Not Available [address], [address], 04/27/2023 04:08:13 04/26/2004/27/2023 LIPID PANEL WITH RATIO S LDL/HDL ratio 1.8 (calc ) Below avera ge Risk: <2.34 [place] ge Risk: 2.35- 4.12 Moder ate Risk: 4.13- 5.56 High Risk: >5.57 Not Available [facility] [address] [facility] [place], [address], 04/27/2023 04:08:13 04/26/2004/27/2023 LIPID PANEL WITH RATIO S non HDL cholesterol 123 mg/dL _(randall c) <130 normal For patie nts with diabe camille plus 1 major ASCVD risk facto r, treat ing to a non-H DL-C goal of <100 mg/dL (LDL- C of <70 mg/dL ) is theresa hughes optio n. Not Available [address] [address] [place], [address], 04/27/2023 04:08:13 04/26/2004/27/2023 COMPR EHENS JURGEN METAB OLIC PANEL glucose 86 mg/dL 65-99 normal Fasti ng refer ence inter yin Not Available [address] [address] [place], [address], 04/27/2023 04:08:14 04/26/2004/27/2023 COMPR EHENS JURGEN METAB OLIC PANEL urea nitrogen (BUN) 19 mg/dL 7-25 normal Not Available [address] [address] [place], [address], 04/27/2023 04:08:14 04/26/2004/27/2023 COMPR EHENS JURGEN METAB OLIC PANEL creatinine 0.75 mg/dL 0.50-0 .99 normal Not Available [facility] [address] [address] [place], [address], 04/27/2023 04:08:14 04/26/2004/27/2023 COMPR EHENS JURGEN METAB OLIC PANEL eGFR 101 mL/mi n/1.7 3m2 > or = 60 normal Not Available [address], [address], 04/27/2023 04:08:14 04/26/2004/27/2023 COMPR EHENS JURGEN METAB OLIC PANEL BUN/creatini ne ratio SEE NOTE: (calc ) 6-22 Not Repor jia: BUN and Creat inine are withi n refer ence range . Not Available [address] [place], [address], 04/27/2023 04:08:14 04/26/2004/27/2023 COMPR EHENS JURGEN METAB OLIC PANEL sodium 140 mmol/ L 135-14 6 normal Not Available [address] [place], [address], 04/27/2023 04:08:14 04/26/2004/27/2023 COMPR EHENS JURGEN METAB OLIC PANEL potassium 4.6 mmol/ L 3.5-5. 3 normal Not Available [address], [address], 04/27/2023 04:08:14 04/26/2004/27/2023 COMPR EHENS JURGEN METAB OLIC PANEL chloride 104 mmol/ L 98-110 normal Not Available [address], [address], 04/27/2023 04:08:14 04/26/2004/27/2023 COMPR EHENS JURGEN METAB OLIC PANEL carbon dioxide 28 mmol/ L 20-32 normal Not Available [address], [address], 04/27/2023 04:08:14 04/26/2004/27/2023 COMPR EHENS JURGEN METAB OLIC PANEL calcium 9.6 mg/dL 8.6-10 .2 normal Not Available [address], [address], 04/27/2023 04:08:14 04/26/2004/27/2023 COMPR EHENS JURGEN METAB OLIC PANEL protein, total 7.4 g/dL 6.1-8. 1 normal Not Available [address] [place], [address], 04/27/2023 04:08:14 04/26/2004/27/2023 COMPR EHENS JURGEN METAB OLIC PANEL albumin 4.7 g/dL 3.6-5. 1 normal Not Available [address], [address], 04/27/2023 04:08:14 04/26/20 23 04/27/2023 COMPR EHENS JURGEN METAB OLIC PANEL globulin 2.7 g/dL_ (calc ) 1.9-3. 7 normal Not Available [address], [address], 04/27/2023 04:08:14 04/26/2004/27/2023 COMPR EHENS JURGEN METAB OLIC PANEL albumin/glob ulin ratio 1.7 (calc ) 1.0-2. 5 normal Not Available [address], [address], 04/27/2023 04:08:14 04/26/2004/27/2023 COMPR EHENS JURGEN METAB OLIC PANEL bilirubin, total 0.4 mg/dL 0.2-1. 2 normal Not Available [address], [address], 04/27/2023 04:08:14 04/26/20 23 04/27/2023 COMPR EHENS JURGEN METAB OLIC PANEL alkaline phosphatase 50 U/L 31-125 normal Not Available [address], [address], 04/27/2023 04:08:14 04/26/20 23 04/27/2023 COMPR EHENS JURGEN METAB OLIC PANEL AST 16 U/L 10-30 normal Not Available [address], [address], 04/27/2023 04:08:14 04/26/20 23 04/27/2023 COMPR EHENS JURGEN METAB OLIC PANEL ALT 22 U/L 6-29 normal Not Available [address] [place], [address], 04/27/2023 04:08:14 04/26/2004/27/2023 HEMOG LOBIN A1C hemoglobin A1C 5.0 %_of_ total _HGB <5.7 normal For the purpo se of celestina cantu for the prese nce of diabe camille: <5.7% Consi stent with the absen ce of diabe camille 5.7-6 .4% Consi stent with incre ased risk for diabe camille (pred iabet es) > or =6.5% Consi stent with diabe camilel This assay resul t is consi stent with a decre ased risk of diabe camille. Curre ntly, no conse nsus exist s roel roche use of hemog lobin A1c for diagn osis of diabe camille in child ignacio. Accor ding to Ameri can Diabe camille Assoc iatio n (ADA) guide lines , hemog lobin A1c <7.0% repre sents optim al contr ol in non-p regna nt diabe tic patie nts. Diffe rent metri cs may apply to speci fic patie nt popul ation s. Stand ards of Medic al Care in Diabe camille(A DA). Not Available [address], [address], 04/27/2023 04:08:15 04/26/2004/27/2023 CBC (INCL UDES DIFF/ PLT) white blood cell count 5.6 thous and/u L 3.8-10 .8 normal Not Available [facility] [address] [address] [place], [address], 04/27/2023 04:08:16 04/26/2004/27/2023 CBC (INCL UDES DIFF/ PLT) red blood cell count 4.21 josie on/uL 3.80-5 .10 normal Not Available [facility] [address] [address] [place], [address], 04/27/2023 04:08:16 04/26/20 23 04/27/2023 CBC (INCL UDES DIFF/ PLT) hemoglobin 12.6 g/dL 11.7-1 5.5 normal Not Available [address], [address], 04/27/2023 04:08:16 04/26/20 23 04/27/2023 CBC (INCL UDES DIFF/ PLT) hematocrit 38.8 % 35.0-4 5.0 normal Not Available [address], [address], 04/27/2023 04:08:16 04/26/2004/27/2023 CBC (INCL UDES DIFF/ PLT) MCV 92.2 fL 80.0-1 00.0 normal Not Available [address], [address], 04/27/2023 04:08:16 04/26/2004/27/2023 CBC (INCL UDES DIFF/ PLT) MCH 29.9 pg 27.0-3 3.0 normal Not Available [address], [address], 04/27/2023 04:08:16 04/26/2004/27/2023 CBC (INCL UDES DIFF/ PLT) MCHC 32.5 g/dL 32.0-3 6.0 normal Not Available [address], [address], 04/27/2023 04:08:16 04/26/2004/27/2023 CBC (INCL UDES DIFF/ PLT) RDW 11.8 % 11.0-1 5.0 normal Not Available [address], [address], 04/27/2023 04:08:16 04/26/2004/27/2023 CBC (INCL UDES DIFF/ PLT) platelet count 259 thous and/u L 140-40 0 normal Not Available [facility] [address] [place], [address], 04/27/2023 04:08:16 04/26/2004/27/2023 CBC (INCL UDES DIFF/ PLT) MPV 11.1 fL 7.5-12 .5 normal Not Available [address], [address], 04/27/2023 04:08:16 04/26/2004/27/2023 CBC (INCL UDES DIFF/ PLT) absolute neutrophils 3595 cells /uL 1500-7 800 normal Not Available [address], [address], 04/27/2023 04:08:16 04/26/2004/27/2023 CBC (INCL UDES DIFF/ PLT) absolute lymphocytes 1540 cells /uL 850-39 00 normal Not Available [address], [address], 04/27/2023 04:08:16 04/26/2004/27/2023 CBC (INCL UDES DIFF/ PLT) absolute monocytes 297 cells /uL 200-95 0 normal Not Available [address], [address], 04/27/2023 04:08:16 04/26/2004/27/2023 CBC (INCL UDES DIFF/ PLT) absolute eosinophils 129 cells /uL 15-500 normal Not Available [address], [address], 04/27/2023 04:08:16 04/26/2004/27/2023 CBC (INCL UDES DIFF/ PLT) absolute basophils 39 cells /uL 0-200 normal Not Available [address], [address], 04/27/2023 04:08:16 04/26/2004/27/2023 CBC (INCL UDES DIFF/ PLT) neutrophils 64.2 % normal Not Available [address], [address], 04/27/2023 04:08:16 04/26/2004/27/2023 CBC (INCL UDES DIFF/ PLT) lymphocytes 27.5 % normal Not Available [facility] [address], [address], 04/27/2023 04:08:16 04/26/2004/27/2023 CBC (INCL UDES DIFF/ PLT) monocytes 5.3 % normal Not Available [facility] [address], [address], 04/27/2023 04:08:16 04/26/2004/27/2023 CBC (INCL UDES DIFF/ PLT) eosinophils 2.3 % normal Not Available [address], [address], 04/27/2023 04:08:16 04/26/2004/27/2023 CBC (INCL UDES DIFF/ PLT) basophils 0.7 % normal Not Available [address], [address], 04/27/2023 04:08:16 10/20/1910/06/2022 , hipolito ricci No observ ation record ed. [email or web address] [facility] [address] [facility] [address], [place], [address], 10/20/2022 10:19:21 Result Notes None recorded. Problems Name Problem SNOMED Code Status Onset Date Resolution Date Notes Provider Name and Address Organization Details Recorded Time Mixed anxiety and depressive disorder 271703284 Active 2021 Not Available [employer] 3 01:24:07 Onychomycosis of toenails 829935501 Active 2022 FREIDA Matias [address], [facility] [address], [place], [address] , [facility] [employer] [facility] 3 15:41:47 Major depressive disorder 058202362 Active 2022 FREIDA Matias [address] [address], [place], [address] , [facility] [employer] [facility] 3 11:18:22 Anxiety 64260348 Active 2022 FREIDA Matias [address] [facility] [address], [place], [address] , [facility] [employer] [facility] 3 11:21:03 Problem Notes None recorded. Medical Equipment None Reported. Allergies No known drug allergies Medications Name Sig Start Date Stop Date Status Note LastModified by Organization Details LastModified Time phenazopyrid ine 200 mg tablet TAKE 1 TABLET BY MOUTH THREE TIMES DAILY NEEDED 04/22 completed Not Available Not Available Not Available triamcinolon e acetonide 0.1 % topical cream active Not Available Not Available Not Available terbinafine HCl 250 mg tablet Take 1 tablet every day by oral route for 90 days. active Not Available Not Available No t Available alprazolam 0.5 mg tablet TAKE 1 TABLET BY MOUTH TWICE DAILY NEEDED FOR ANXIETY active Not Available Not Available No t Available escitalopram 10 mg tablet TAKE 1 TABLET BY MOUTH EVERY DAY IN THE EVENING 04/24 completed Not Available Not Available Not Available bupropion HCl XL 300 mg 24 hr tablet, extended release 04/24 completed Not Available Not Available Not Available bupropion HCl XL 150 mg 24 hr tablet, extended release active Not Available Not Available Not Available nitrofuranto in monohydrate/ macrocrystal s 100 mg capsule TAKE 1 CAPSULE BY MOUTH TWICE DAILY WITH THE MORNING AND EVENING MEAL FOR 7 DAYS 04/22 completed Not Available Not Available Not Available Addyi 100 mg tablet active Not Available Not Available Not Available Vraylar 1.5 mg capsule Take 1 capsule every day by oral route. active Not Available Not Available No t Available Vitals Date Recorded Body height Oxygen saturation Oxygen saturation in Arterial blood by Pulse oximetry Heart rate Respiratory rate Body temperature Systolic blood pressure Diastolic blood pressure Provider Name and Address Organization Details Last Updated DateTime 2 160.02 cm 97 % 97 % 83 /min 16 /min 98 [degF] 124 mm[Hg] 90 mm[Hg] Not Available [employer] 3 01:23:43 Date Recorded Systolic blood pressure Diastolic blood pressure Provider Name and Address Organization Details Last Updated DateTime 04/24/2023 110 mm[Hg] 80 mm[Hg] FREIDA Matias [address], [facility] [address], [place], [address], [employer] 04/24/2023 12:49:41 Date Recorded Body weight Body mass index (BMI) Body height Body temperature Heart rate Oxygen saturation Oxygen saturation in Arterial blood by Pulse oximetry Systolic blood pressure Diastolic blood pressure Provider Name and Address Organization Details Last Updated DateTime 3 72931.7 5 g 24.4 kg/m2 160.02 cm 97.1 [degF] 99 /min 99 % 99 % 120 mm[Hg] 82 mm[Hg] Melissa Rodriguez RN [place] [employer] 12:29:19 Social History Question Answer Notes LastModified by Organizat ion Details LastModified Time Tobacco Smoking Status Never Smoker Melissa Rodriguez RN null, [employer] 04/24/2023 12:14:17 What Is Your Level Of Caffeine Consumption? Occasional [id number] Information not available 09/15/2022 In The 14 Days Before Symptom Onset, Have You Had Close Contact With A Laboratory-confirm ed COVID-19 While That Case Was Ill? No [email or web address] Information n ot available 04/24/2023 In The 14 Days Before Symptom Onset, Have You Had Close Contact With A Person Who Is Under Investigation For COVID-19 While That Person Was Ill? No [email or web address] Information not available 04/24/2023 What Type Of Diet Are You Following? REGULAR [id number] Information not available 09/15/2022 What Is The Highest Grade Or Level Of School You Have Completed Or The Highest Degree You Have Received? [id number] [email or web address] Information not available 04/24/2023 Have There Been Any Changes To Your Family Or Social Situation? No [email or web address] Information no t available 04/24/2023 Do You Use Insect Repellent Routinely? Yes [email or web address] Information not available 04/24/2023 What Is Your Relationship Status? [id number] Information not available 09/15/2022 Do You Use Your Seat Belt Or Car Seat Routinely? Yes [email or web address] Information not available 04/24/2023 Do You Have Smoke And Carbon Monoxide Detectors In Your Home? Yes [email or web address] Information not available 04/24/2023 Are You Passively Exposed To Smoke? No Information no t available 04/24/2023 Are There Any Smokers In Your House? No [email or web address] Information not available 04/24/2023 Do You Use Sunscreen Routinely? Yes [email or web address] Information not available 04/24/2023 Have You Recently Traveled Abroad? No [email or web address] Information not available 04/24/2023 Do You Have Any Dietary Restrictions? No [email or web address] Information not available 04/24/2023 Sex: Unknown Functional Status Question Answer Note LastModified by Organizat ion Details LastModified Time Do you use any illicit or recreational drugs? No [email or web address] Information not available 04/24/2023 Do you or have you ever used any other forms of tobacco or nicotine? No [email or web address] Information not available 04/24/2023 What is your level of alcohol consumption? 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 Moderate [id number] Information not available 09/15/2022 Mental Status None recorded. Family History Relationship Description Onset Age of this Age Resolved Age Notes LastModified by Organization Details LastModified Time Mother History of cardiomyopat hy [id number] Not available 09/15/2022 01:23:24 Medical History Condition Response DIZZINESS Y ANXIETY DISORDER Y Gynecological History Statement/Question Response How many live births 1 Date of Last Pap 07/17/2021 Date of Last Mammogram 07/17/2021 Current Control Method None Obstetrics History GPAL:G 1 P 1 0 0 1 Type Value Full Term 1 Living 1 Total 1 Past Encounters Encounter ID Performer Location Encounter Start Date Encounter Closed Date Diagnosis/Indication Diagnosis SNOMED-CT Code Diagnosis ICD10 Code Diagnosis Note [id number] FREIDA Matias [facility] [address] [place] [address] 04/22/2022 00:00:00 05/16/2022 10:40:19 [id number] FREIDA Matias [facility] [place] [address] [place] [address] 04/24/2023 12:12:30 04/24/2023 12:50:03 Adult health examination 852009120 Z00.01 annual wellness completed, all labs are due fasting. Cholesterol screening 27 6578504 Z13.220 Diabetes m ellitus screening 494548654 Z13.1 Long-term drug therapy 197838989 Z79.899 Major depr essive disorder 759210084 F32.9 continue wellbutrin XL 150mg daily. add samples of Vraylar 1.5mg daily for better MDD control. Anxiety 20874308 F41.9 stable on PRN only alprazolam 0.5mg bid PRN Health Concerns Section Related Observation LastModified by Organization Detai ls LastModified Time None Recorded Concern Status LastModified by Organization Details LastModified Time None Recorded Advance Directives Directive None Recorded Payers Encounter Date Sequence Insurance Name Policy Number Policy Maya Covered Member ID Maya Member ID Guarantor Name 04/24/2023 1 [facility] [id number] Becca Marinelli [id number] Becca Marinelli Notes Date Note Type Note Provider Name and Address Organization Details Recorded Time 04/22/2022 text/html Generic HPI TemplateReported bypatient.Notes:pt is here today for new patient wellness, no current complaints. is taking xanax prn and buproprion for anxiety /depression symptoms. Not Available [employer] 05/16/2022 10:40:19 04/24/2023 text/html Anxiety/Depressi onRep orted bypatient.Severity:de nies suicidal ideations; able to maintain relationships; does not interfere with activities of daily living Context:no major life stressors Associated Symptoms:denies homicidal ideations; no significant weight gain; no significant weight loss; no visual/auditory hallucinations; no delusions; no shortness of breath wellness FREIDA Matias [address] [facility], [facility] [address], [place], [address], [employer] 05/16/2023 21:41:03 OBGyn Episode No OBEpisode recorded.
[2024-12-19 06:46] VITALS: BP 123/85; PULSE 95; RESP 18; TEMP 36.4; O2SAT 100
[2024-12-19] MEDS: LACTATED RINGERS 1,000 ML 150 ML IV CONT (06:53)
--- NOTE | 2024-12-19 07:47 | WPDANESEPPF ---
Anes - Initial Pre Proc Eval Procedure: Operation Date: 12/19/24 08:00 Proposed Procedures p Screening Colonoscopy - James Aldridge MD Date/Time: 12/19/24 07:47 Surgeon: James Aldridge MD Pre Op Diagnosis: Screening Patient Data Age: 44 Gender: F Height: 1.6 m Weight: 57.3 kg Last Vital Signs Temp 97.5 F L 12/19/24 06:46 Pulse 95 12/19/24 06:46 Resp 18 12/19/24 06:46 BP 123/85 12/19/24 06:46 Pulse Ox 100 12/19/24 06:46 O2 Del Method Room Air 12/19/24 06:46 Allergies Allergy/AdvReac Type Severity Reaction Status Date / Time No Known Allergies Allergy Unknown Verified 12/19/24 06:44 Home Medications ?Medication ?Instructions ?Recorded ?Confirmed ?Type bupropion HCl 300 mg 24 hr tablet, 300 mg PO DAILY 01/22/24 12/19/24 History extended release alprazolam 0.5 mg tablet 0.5 mg PO DAILY PRN anxiety 12/10/24 12/19/24 History Patient hx anesthesia problems: none Family hx anesthesia problems: none Results Review: All pre-operative results and documents have been reviewed as part of the pre-operative evaluation. 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 Anxiety/depression. Informed Consent: The patient's anesthetic plan and its attendant risks and benefits were discussed with the patient/family/POA. Questions were solicited and answers provided to the satisfaction of the patient/family/POA.
--- NOTE | 2024-12-19 07:47 | PM.HPGS ---
History of Present Illness History of Present Illness Consent: Risks, benefits, and alternatives have been discussed and questions answered. Patient agrees to proceed with procedure. Chief complaint: Screening Narrative: Becca Marinelli is a 44 year old female here for first screening colonoscopy Review of Systems Review of Systems: All systems reviewed & are unremarkable except as noted in HPI and below PMFSH Past Medical History Medical History (Updated 12/19/24 @ 07:49 by James Aldridge MD) Colon cancer screening Depression Anxiety Family History Family History Mother Hypertension Family history of cardiovascular disease Family history of cardiac disorder Social History Social History Smoking status: Never smoker Alcohol intake: never Substance use: never Substance use type: does not use Living arrangements: with family Occupation/Education: occupation 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- [employer] Gender identity (if verbalized by the patient): Female Spiritual care concerns: No Meds Home Medications and Allergies Home Medications ?Medication ?Instructions ?Recorded ?Confirmed ?Type bupropion HCl 300 mg 24 hr tablet, 300 mg PO DAILY 01/22/24 12/19/24 History extended release alprazolam 0.5 mg tablet 0.5 mg PO DAILY PRN anxiety 12/10/24 12/19/24 History Allergies Allergy/AdvReac Type Severity Reaction Status Date / Time No Known Allergies Allergy Unknown Verified 12/19/24 06:44 Vital Signs Vital Signs - 24 hr 12/19/24 06:46 Temperature 97.5 F L Pulse Rate 95 Respiratory Rate 18 Blood Pressure 123/85 Pulse Oximetry 100 Oxygen Delivery Room Air Exam Const: General: comfortable and no acute distress HENMT: Face/Nose/Sinus: Normal nares present Eyes: General: appearance normal, both eyes and all related structures Neck: Neck: no JVD Resp: Auscultation: clear to auscultation bilaterally Cardio: Rate: regular rate Rhythm: regular rhythm GI: Inspection: non-distended GI Palp: Yes Soft to palpation Skin: General skin exam: normal color Neuro: General: gait normal Speech: normal speech Extrem: General: normal to inspection Psych: Mental Status: mental status grossly normal Assessment and Plan Assessment and plan (1) Colon cancer screening: Code(s): Z12.11 - Encounter for screening for malignant neoplasm of colon Status: Acute Assessment and Plan: colonoscopy
--- NOTE | 2024-12-19 08:06 | S_PTH ---
PATIENT: Becca Marinelli LOC: [facility]#:[id number] AGE/SX: 44/F ROOM: RE12/19/[address]: James Aldridge MD : 1980 BED: DIS: 12/19/2024 SPEC #: [id number] RECD: 12/19/24 10:14 STATUS: SLAVA VARGAS #: [id number] TIMOTHY: 12/19/24 08:[address]: James Aldridge DEPT: [facility] Surgical RECD BY: Radha Goel ENTERED: 12/19/24 10:15 SP TYPE: Surgical OTHR DR: Katie Perez, PAJody Tissues: A - Colon Polypectomy Procedures: Hematoxylin and Eosin Stain Gross and Microscopic Level 4
[2024-12-19 08:07] LABS: BEDSIDEPREGUCG Negative (Negative)
[2024-12-19 08:09] VITALS: BP 113/72; PULSE 87; RESP 15; O2SAT 100
[2024-12-19 08:19] VITALS: BP 111/76; PULSE 83; RESP 15; O2SAT 100
[2024-12-19 08:29] VITALS: BP 118/80; PULSE 84; RESP 17; O2SAT 100
== END 2024-12-19 08:45 | disposition home or self-care (01) ==
PROVIDERS: PCP Physician Assistant; Visit Provider Internal Medicine Gastroenterology
PROC: 0DJD8ZZ Inspection of Lower Intestinal Tract, Via Natural or Artificial Opening Endoscopic (ICD-10-PCS; CPT 45378; principal; 2024-12-19 08:00)
DX: Z12.11 Encounter for screening for malignant neoplasm of colon (principal); D12.8 Benign neoplasm of rectum; K64.8 Other hemorrhoids; F32.A Depression, unspecified; F41.9 Anxiety disorder, unspecified; Z82.49 Family history of ischemic heart disease and other diseases of the circulatory system
CPT/HCPCS: 45380; 88305; J2003; J2704; J7120

== ENCOUNTER 2025-06-04 07:46 | Outpatient (CLI) | payer OTHER, SELFPAY ==
--- NOTE | ~2025-06-04 | MMUS_ITS ---
EXAMINATION: MM diagnostic gray BI w arturo, US breast RT limited INDICATION: 45-year old female; Presents for evaluation of palpable lump in the right breast felt by her. COMPARISON: 03/28/2024 through 02/13/2020 TECHNIQUE: Digital breast tomosynthesis CC and MLO views of Both breasts and tangential view of the palpable area in the Right breast were obtained with computer-aided detection to assist in interpretation of the study. A radiopaque skin marker was placed over the area of RIGHT breast palpable lump area. MAMMOGRAM FINDINGS: There are scattered areas of fibroglandular density. There are no suspicious masses, calcifications, architectural distortion or any other abnormality in either breast. No suspicious mammographic abnormality correlates to the radiopaque skin marker. RIGHT BREAST ULTRASOUND FINDINGS: Targeted sonographic evaluation of the palpable area was completed. There is no sonographic abnormality that correlates to the area of palpable lump. IMPRESSION: 1. No mammographic or sonographic finding correlates to the palpable lump in the RIGHT breast. 2. No mammographic evidence of malignancy within either breast. Recommendations: Clinical management of patient's palpable lump. Follow-up as clinically warranted. Annual screening bilateral mammography in 12 months BI-RADS 1, NEGATIVE Reviewed, dictated and finalized at location C. [employer]PER[employer] IMPRESSION: 1. No mammographic or sonographic finding correlates to the palpable lump in th e RIGHT breast. 2. No mammographic evidence of malignancy within either breast. Recommendations: Clinical management of patient's palpable lump. Follow-up as clinically warrant ed. Annual screening bilateral mammography in 12 months BI-RADS 1, NEGATIVE
== END 2025-06-04 07:47 | disposition home or self-care (01) ==
LOC: MICIMG 07:46
PROVIDERS: PCP Physician Assistant; Visit Provider Obstetrics & Gynecology
DX: N63.10 Unspecified lump in the right breast, unspecified quadrant (principal)
CPT/HCPCS: 76642; 77062; 77066; G0279